=== PATIENT | female | born 1990 | race Caucasian/White ===

== ENCOUNTER 2019-03-07 21:45 | Emergency (ER) | payer OTHER ==
[~2019-03-07] VITALS: Ht 172.7 cm; Wt 70.5 kg
[2019-03-07 21:47] VITALS: BP 123/85; TEMP 97.9
[2019-03-07 23:20] VITALS: PULSE 85
== END 2019-03-07 23:20 | disposition home or self-care (01) ==
LOC: COL.ER 21:45
DX: S09.90XA Unspecified injury of head, initial encounter (principal); S16.1XXA Strain of muscle, fascia and tendon at neck level, initial encounter; W22.8XXA Striking against or struck by other objects, initial encounter; Y92.830 Public park as the place of occurrence of the external cause
CPT/HCPCS: J1885